=== PATIENT | female | born 1960 | race Caucasian/White ===

== ENCOUNTER → 2024-11-25 10:03 | Outpatient (REF) | payer BC, SELFPAY ==
--- NOTE | ~2024-11-25 | NM_ITS ---
EXAMINATION: Nuclear medicine three-phase bone scan both feet. Whole body bone scan was obtained subsequently. CLINICAL INDICATION: Right heel pain. Rule out stress fracture. COMPARISON: Outside x-rays 09/07/2024. FINDINGS: On first phase of bone scan there is symmetrical perfusion seen to both lower legs and feet. On the second phase of bone scan there is increased blood pool activity seen in bilateral tarsal metatarsal joint and left first metatarsophalangeal joint. On third phase of bone scan there is increased focal activity seen in right calcaneal heel, left first metatarsophalangeal joint, bilateral mid metatarsal phalangeal joints. The above findings are consistent with degenerative arthritic changes. Also on third phase of bone scan there is moderate increased activity seen in bilateral knee joints. No abnormal activity seen in the tibial shins, metatarsals to suspect any murray splints or stress fracture. On whole body bone scan no abnormal activity seen. NM/NM bone 3 phase IMPRESSION: Normal first phase bone scan both feet There is mild increased blood pool activity in bilateral tarsometatarsal joints and left first metatarsal joint followed by increased activity in the third phase as well consistent with DJD. No abnormal activity seen in the metatarsals to suspect stress fracture. No activity seen in the anterior tibial murray to suspect any shinsplints. Mild activity right cavity likely related to bursitis Electronically signed by: Baldemar Aggarwal MD 11/25/2024 04:23 PM [facility]
--- OUTSIDE RECORDS SUMMARY | 2024-11-25 10:56 | XMS_ITS | Clinical Summary ---
Author Organization Formerly [facility], 1928–1983 Address [facility] [place] [address] Care Team Providers Care Assistant Director Of Admissions Name Role Phone Gisel Estrada MD Primary Care Provider + Allergies No known active allergies Medications Medication Sig Dispensed Refills Start Date End Date Status CombiPatch 0.05-0.14 mg/24 hr Patch Semiweekly 03/15/2020 Active propranoloL (Inderal) 10 mg Tablet 02/25/2020 Active estradioL (ESTRACE) 0.01 % (0.1 mg/gram) Cream Use small dab to vaginal opening daily 42.5 g 12 05/06/2020 Active clobetasoL (TEMOVATE) 0.05 % Ointment Use 3X/week hs sparingly to vulva 15 g 1 02/03/2021 Active Active Problems No known active problems Social History Tobacco Use Types Packs/Day Years Used Date Smoking Tobacco: Former Smokeless Tobacco: Never Sex and Gender Information Value Date Recorded Sex Assigned at Not on file Gender Identity Not on file Sexual Orientation Not on file Plan of Treatment Health Maintenance Due Date Last Done Comments CT Colonography 1961 Colonoscopy 1961 Colorectal Cancer Screening 1961 FIT DNA 1961 FIT 1961 Sigmoidoscopy (10 year) with FIT yearly 1961 Sigmoidoscopy 1961 HIV screen 1979 Hepatitis C Screening 1979 Tetanus/Diphtheria/Pertussis Vaccines (1 - Tdap) 11/01 HPV test 1991 PAP Smear 1991 Breast Cancer Share Decision Needed 2001 Pneumoccocal Vaccine: 50+ (1 of 1 - PCV) 2011 Zoster vaccine (1 of 2) 2011 Advance Directive 2016 Breast Cancer screening 08/21/2021 08/21/2019 Covid-19 Vaccine ( - 2023- season) 2024 Influenza (Flu) vaccine (1 o f 1 - Influenza standard series) 06/21/2024 Care Teams Assistant Director Of Admissions Relationship Specialty Start Date End Date Gisel Estrada MD [address] [place] [address] PCP - General Family Medicine 11/12/19
--- OUTSIDE RECORDS SUMMARY | 2024-11-25 10:56 | XMS_ITS | Continuity of Care Document ---
Author Organization [facility] Address [address] [facility] 2nd Floor [address] [place] [address]- Care Team Providers Care Greeting Card Maker Name Role Phone Gisel Estrada MD Primary Care Physician [phone] Encounter [facility] [place] Date(s): 10/02/24 - 11/01/24 [facility] [place] [address] [place] [address]- Attending Physician: Anna Clifton Admitting Physician: AdmAnna valero Referring Physician: Admtr ArIsaias Encounter Type: Triage Allergies, Adverse Reactions, Alerts No Known Medication Allergies Substance Criticality Severity Reaction Reaction Severity Status Other Food Allergy 1 Active 1Walnut sensitivity Medications aspirin 81 mg oral delayed release tablet 81 mg, 1, tablet, By Mouth, Daily, # 30 tablet, Refills 0, Maintenance, 01/16/24 1:08:00 PM EDT, Partial fill upon patient request if the prescription is for a schedule II opioid drug. Start Date: 01/16/24 Status: Ordered Quantity: 30.0 Unit: tablet Repeat number: 1 clobetasol 0.05% topical ointment See Instructions, Topically 3 times a week, 0 Refills, Maintenance, 11/13/21 12:59:00 PM EST, Partial fill upon patient request if the prescription is for a schedule II opioid drug. Start Date: 11/13/21 Status: Ordered Repeat number: 1 Combipatch 0.05 mg-0.14 mg/24 hours transdermal film, extended release See Instructions, 1/2 patch Topically twice weekly, 0 Refills, Maintenance, 11/13/21 12:57:00 PM EST, Partial fill upon patient request if the prescription is for a schedule II opioid drug. Start Date: 11/13/21 Status: Ordered Repeat number: 1 CoQ10 By Mouth, Daily, 200 mg tab, 0 Refills, Maintenance, 01/16/24 1:06:00 PM EDT, Partial fill upon patient request if the prescription is for a schedule II opioid drug. Start Date: 01/16/24 Status: Ordered Repeat number: 1 estradiol 0.1 mg/g vaginal cream See Instructions, 1 Gm Topically 3 nights/wk at bedtime, # 42.5 Gm, 2 Refills, Maintenance, :20:00 AM EDT, Cream, Partial fill upon patient request if the prescription is for a schedule II opioid drug. Start Date: 01/15/22 Status: Ordered Quantity: 42.5 Unit: g Repeat number: 3 Fish Oil By Mouth, 0 Refills, Maintenance, 01/16/24 1:07:00 PM EDT, Partial fill upon patient request if the prescription is for a schedule II opioid drug. Start Date: 01/16/24 Status: Ordered Repeat number: 1 propranolol 10 mg oral tablet 10 mg, 1, tablet, By Mouth, Daily, PRN, # 180 tablet, Refills 0, Maintenance, 01/16/24 1:07:00 PM EDT, Partial fill upon patient request if the prescription is for a schedule II opioid drug. Start Date: 01/16/24 Status: Ordered Quantity: 180.0 Unit: tablet Repeat number: 1 rosuvastatin 20 mg oral tablet 1 tablet = 20 mg, By Mouth, Daily, # 90 tablet, 3 Refills, Maintenance, 10/02/24 2:41:00 PM EST, Tablet, [facility] #[id number], Partial fill upon patient request if the prescription is for a schedule IIopioid drug., 174, cm, 10/02/24 14:25:00 EST, Height Start Date: 10/02/24 Status: Ordered Quantity: 90.0 Unit: tablet Repeat number: 4 Problem List Condition Confirmation Course Effective Dates Status H ealth Status Informant Anxiety Confirmed Active Atrophic vaginitis Confirmed Active Coronary artery calcification seen on CT scan Confirmed Active Ovarian cyst Confirmed Active Hormone replacement therapy Confirmed Active DUB (dysfunctional uterine bleeding) Confirmed Active Murmur Confirmed Active Hyperlipidemia Confirmed Active Lichen sclerosus Confirmed Active Vaginal discharge Confirmed Active Varicella Confirmed Active Social History Social History Type Response Smoking Status Never smoker entered on: 03/26/14 Sex Sex Representation Female (finding) Laboratory * Event Display: Non Lab Results Authored Date: Patient Care team information Care Team Personnel Name: Gisel Estrada MD Position: [facility] Outreach Member Role: PCP Address: [address] [place] [address] Dr Estrada [address] Telecom: Care Team Related Persons Name: SYDNIE FONTAINE Insurance Providers Guarantor name: SNEHAL FONTAINE Health Plan Information #: 1 Payer: HMO BLUE IN NETWORK Member Number: NA Policy Number: NA Group Number: NA
--- OUTSIDE RECORDS SUMMARY | 2024-11-25 10:56 | XMS_ITS | Data Portability ---
Author Organization [facility], [facility] Address [address] [place] [address] Care Team Providers Care Entrance Guard Name Role Phone ADRIENNE ATKINS Assessment Encounter Date Assessment Date Assessment LastModified by Organization Details LastModified Time 04/25/2012 04/25/2012 reassure.? ? ? suggest investigating when her insurance will pay for shingles vaccine. [email or web address] Not available 04/25/2012 09:29:51 10/29/2012 10/29/2012 ok to keep soaking but probably needs excision of half of nail.? ? ? she will think about it.? ? ?horizontal/stra ight cutting as well as central V's discussed.? [email or web address] Not available 10/29/2012 15:59:50 Plan of Treatment Reminders Order Date Submit Date Provider Last Modified By Organization Details Last Modified Time Details Appointments None record ed. Lab None record ed. Referral None record ed. Procedures None record ed. Surgeries None record ed. Imaging None record ed. Medication Orders None record ed. Patient TargetsNo targets recorded. Patient InstructionsNo instructions recorded. Reason for Referral None Reported. 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 Procedures Surgical History Date Name Laterality Status Provider Name and Address Organization Details Recorded Time 01/16/20 17 Marciano - Colonoscopy completed Derrell Tariq MD [address] [place] [address], [id number], [facility] 01/15/2017 09:41:21 07/04/20 06 completed Not Available [facility] 1 06:05:52 Imaging Results None recorded. Procedure Notes None recorded. Medical Equipment None Reported. Allergies No known drug allergies Medications Name Sig Start Date Stop Date Status Note LastModified by Organization Details LastModified Time Diflucan 150 mg tablet Take 1 tablet by oral route for 1 day. 09/29 completed Not Available Not Available Not Available aspirin 81 mg tablet,del ayed release TAKE 1 TABLET BY MOUTH EVERY DAY FOR 90 DAYS active Not Available Not Available No t Available propranolo l 10 mg tablet TAKE 1 TABLET BY MOUTH TWICE A DAY FOR 30 DAYS active Not Available Not Available No t Available lorazepam 0.5 mg tablet active Not Available Not Available Not Available Flagyl 500 mg tablet Take 1 tablet twice a day by oral route for 10 days. 07/01 completed Not Available Not Available Not Available ferrous sulfate 325 mg (65 mg iron) tablet Take 1 tablet twice a day by oral route. active Not Available Not Available No t Available Cipro 500 mg tablet Take 1 tablet every 12 hours by oral route for 10 days. 07/01 completed Not Available Not Available Not Available mupirocin 2 % topical ointment apply to rash on knee bid active Not Available Not Available No t Available clobetasol 0.05 % topical ointment apply daily or bid to affected area active Not Available Not Available No t Available estradiol 0.01% (0.1 mg/gram) vaginal cream APPLY DIRECTED INTRAVAGI DAVID 3 TIMES A WEEK FOR 90 DAYS active Not Available Not Available No t Available Laxative (bisacodyl ) 5 mg tablet,del ayed release TAKE 4 TABLETS BY MOUTH DIRECTED 1 DAY active Not Available Not Available No t Available rosuvastat in 20 mg tablet TAKE 1 TABLET BY MOUTH EVERY DAY FOR 30 DAYS active Not Available Not Available No t Available iron active daily Not Available Not Availa ble Not Available GaviLyte-G 236 gram-22.74 gram-6.74 gram-5.86 gram oral solution USE DIRECTED FOR 1 DAY active Not Available Not Available No t Available Vitals Date Recorded Body height Body weight Body mass index (BMI) Heart rate Systolic blood pressure Diastolic blood pressure Provider Name and Address Organization Details Last Updated DateTime 2 172.72 cm 23804.3 16789 g 24.9 kg/m2 62 /min 100 mm[Hg] 70 mm[Hg] Indu Mantilla [facility] 2 09:41:43 Date Recorded Body weight Body height Body mass index (BMI) Heart rate Systolic blood pressure Diastolic blood pressure Provider Name and Address Organization Details Last Updated DateTime 2 33457.5 98370 g 172.72 cm 25 kg/m2 58 /min 110 mm[Hg] 66 mm[Hg] Lupe Calixto LPN [facility] 2 09:03:56 Date Recorded Body height Body weight Body mass index (BMI) Heart rate Systolic blood pressure Diastolic blood pressure Provider Name and Address Organization Details Last Updated DateTime 3 172.72 cm 64280.0 80537 g 24.5 kg/m2 66 /min 114 mm[Hg] 72 mm[Hg] Lupe Calixto RISK ANALYST [facility] 3 15:16:08 Social History Question Answer Notes LastModified by Organizat ion Details LastModified Time Tobacco Smoking Status Never Smoker Not Available [facility] 09/06/2011 04:56:02 What Is Your Occupation? [employer] [email or web address] Information not available 09/28/2011 Are There Any Guns Present In Your Home? No [email or web address] Information not available 09/28/2011 Live Alone Or With Others? With Others [email or web address] Information not available 09/28/2011 Patient Has Health Care Proxy Signed And In Chart No Pt Will Drop Off Copy .Will [email or web address] Information not available 10/03/2018 Marital Status Will [email or web address] Information not available 09/28/2011 How Many Children Do You Have? 2 2 Boys: College And 17 [email or web address] Information not available 09/28/2011 Seat Belts Used Routinely Yes Helmet [email or web address] Information not available 09/28/2011 Are You Sexually Active? No Uncomfortable [email or web address] Information not available 09/28/2011 Smoke Alarm In Home Yes [email or web address] Information not available 09/28/2011 Do You Use Sunscreen Routinely? No Careful And Sunglasses [email or web address] Information not available 09/28/2011 Sex: Unknown Functional Status None recorded. Mental Status None recorded. Family History Nothing Reported. Medical History No medical history recorded. Gynecological HistoryNo gynecological history recorded. Obstetrics History GPAL:G 0 P 0 0 0 0 Immunizations Vaccine Type Date Status Note Provider Nam e and Address Organization Details Recorded Time Influenza, live, trivalent, intranasal 1 completed Not Available [facility] 11/07/2019 02:18:08 influenza, seasonal, intradermal, preservative free 3 completed Not Available [facility] 11/07/2019 02:25:38 Hep B, unspecified formulation 1 completed Lenka Escobar RN null, [facility] 11/29/2011 12:45:19 Hep A-Hep B 0 completed CLAU Chavis, [facility] 11/29/2011 12:47:35 Td(adult) unspecified formulation 3 completed CLAU Chavis, [facility] 11/29/2011 12:48:36 Tdap 0 completed CLAU Chavis, [facility] 11/29/2011 12:49:18 Past Encounters Encounter ID Performer Location Encounter Start Date Encounter Closed Date Diagnosis/Indication Diagnosis SNOMED-CT Code Diagnosis ICD10 Code Diagnosis Note [id number] [facility], [address] [place] [id number] 07/04/2006 07:43:24 07/05/2006 07:31:51 [id number] [facility] - [address] [place] [id number] 07/04/2006 10:12:11 07/04/2006 10:12:24 [id number] [facility], OFFICE [address] [place] [address] DR NATHAN [place] [id number] 04/16/2011 09:55:31 04/16/2011 12:09:12 [id number] , [facility], [address] NATHAN [place] [id number] 09/28/2011 11:31:28 09/28/2011 13:26:45 [id number] , [address] NATHAN [place] [id number] 12/07/2011 13:43:58 12/07/2011 14:25:20 [id number] , [facility], [address] NATHAN [place] [id number] 01/02/2012 09:07:40 01/02/2012 09:50:31 [id number] , [address] NATHAN [place] [id number] 03/28/2012 09:28:19 03/28/2012 10:09:24 [id number] , [address] NATHAN [place] [id number] 04/25/2012 08:40:41 04/25/2012 09:30:17 [id number] Alycia Pacheco LPN , [address] NATHAN [place] [id number] 10/24/2012 08:14:12 10/24/2012 09:05:53 [id number] Lana Vizcaino MD , [address] [place] [id number] 10/29/2012 14:33:07 10/29/2012 15:54:32 [id number] Derrell Tariq MD [facility], [address] [place], [place] [id number] 01/15/2017 07:32:56 01/15/2017 14:21:07 [id number] Grace Anderson RN Endoscopy , [address] [place] [id number] 03/23/2024 07:29:35 03/23/2024 13:41:55 Health Concerns Section Related Observation LastModified by Organization Detai ls LastModified Time None Recorded Concern Status LastModified by Organization Details LastModified Time None Recorded Advance Directives Directive None Recorded Payers Encounter Date Sequence Insurance Name Policy Number Policy Dominguez Covered Member ID Dominguez Member ID Guarantor Name 03/28/2012 1 [facility]: HMO BLUE [id number] Filemon Martinez [id number] Alan Martinez 04/25/2012 1 [place] [id number] Filemon Martinez [id number] Alan Martinez 10/24/2012 1 [place] [id number] Filemon Martinez [id number] Alan Martinez 10/29/2012 1 [place] [id number] Filemon Martinez [id number] Alan Martinez 01/15/2017 1 [place] [id number] Filemon Martinez [id number] Alan Martinez Notes Date Note Type Note Provider Name and Address Organization Details Recorded Time 10/24/2012 text/html HPI Presents for Flu vaccine today. Screening negative.? Alycia Pacheco LPN [facility], [facility] 10/24/2012 09:05:40 10/29/2012 text/html ingrown right great toe nail lateral aspect. has been paring it for a long time to avoid problems but around the corner not straight across. Lana Vizcaino MD [address] [place] [address], [phone], [facility] 10/29/2012 15:59:56 OBGyn Episode No OBEpisode recorded.
--- OUTSIDE RECORDS SUMMARY | 2024-11-25 10:56 | XMS_ITS | Data Portability ---
Author Organization [facility], Endoscopy, [facility] Address [address] [place] [address] Assessment No assessment recorded. Plan of Treatment Reminders Order Date Submit Date Provider Last Modified By Organization Details Last Modified Time Details Appointments None record ed. Lab None record ed. Referral None record ed. Procedures None record ed. Surgeries None record ed. Imaging None record ed. Medication Orders None record ed. Patient TargetsNo targets recorded. Patient InstructionsNo instructions recorded. Reason for Referral None Reported. Results Created Date Observation Date Name Description Value Unit Range Abnormal Flag Note LastModifiedBy Organization Detail LastModifiedTime 03/23/20 24 03/23/2024 elect sudhakar diogr am No observ ation record ed. [email or web address] Not Available 2023 10:48:43 Result Notes None recorded. Procedures Surgical History Date Name Laterality Status Provider Name and Address Organization Details Recorded Time 4 Genaro - Colonoscopy completed Steven Lam MD [address] [place] [address], [phone], [facility] 03/23/2024 09:12:43 Imaging Results Imaging Date Name Status LastModified by Organization Details LastModified Time 03/23/2024 electrocardiogram completed [email or web address] Informa tion not available 03/26/2024 10:48:43 Procedure Notes None recorded. Medical Equipment None Reported. Allergies No known drug allergies Medications Name Sig Start Date Stop Date Status Note LastModified by Organization Details LastModified Time aspirin active Not Available Not Avail able Not Available CoQ10 active Not Available Not Availa ble Not Available rosuvastatin active Not Available Not Available Not Available Vitals None Recorded Social History None recorded. Functional Status None recorded. Mental Status None recorded. Family History Nothing Reported. Medical History No medical history recorded. Gynecological HistoryNo gynecological history recorded. Obstetrics History GPAL:G 0 P 0 0 0 0 Past Encounters Encounter ID Performer Location Encounter Start Date Encounter Closed Date Diagnosis/Indication Diagnosis SNOMED-CT Code Diagnosis ICD10 Code Diagnosis Note [id number] [address] [place] [id number] 07/04/2006 07:43:24 07/05/2006 07:31:51 [id number] [facility] - [address] [place] [id number] 07/04/2006 10:12:11 07/04/2006 10:12:[id number] [place] [id number] 04/16/2011 09:55:31 04/16/2011 12:09:[id number] [place] [id number] 09/28/2011 11:31:28 09/28/2011 13:26:[id number] [place] [id number] 12/07/2011 13:43:58 12/07/2011 14:25:[id number] [place] [id number] 01/02/2012 09:07:40 01/02/2012 09:50:[id number] [place] [id number] 03/28/2012 09:28:19 03/28/2012 10:09:[id number] [place] [id number] 04/25/2012 08:40:41 04/25/2012 09:30:17 [id number] Alycia Pacheco LPN [address] [place] [id number] 10/24/2012 08:14:12 10/24/2012 09:05:53 [id number] Lana Vizcaino MD [address] [place] [id number] 10/29/2012 14:33:07 10/29/2012 15:54:32 [id number] Derrell Tariq MD [address] [place] [id number] 01/15/2017 07:32:56 01/15/2017 14:21:07 [id number] Grace Anderson RN Endoscopy , [address] [id number] 03/23/2024 07:29:35 03/23/2024 13:41:55 Health Concerns Section Related Observation LastModified by Organization Detai ls LastModified Time None Recorded Concern Status LastModified by Organization Details LastModified Time None Recorded Advance Directives Directive None Recorded Payers Encounter Date Sequence Insurance Name Policy Number Policy Dominguez Covered Member ID Dominguez Member ID Guarantor Name 03/23/2024 1 [facility] [id number] Filemon Martinez [id number] Alan Martinez OBGyn Episode No OBEpisode recorded.
== END ==
LOC: HO.NUCMED 10:03
PROVIDERS: PCP Family Medicine; Visit Provider Podiatrist
DX: M84.371A Stress fracture, right ankle, initial encounter for fracture (principal)
CPT/HCPCS: 78315; A9503

== ENCOUNTER → 2024-11-25 10:09 | Outpatient (BNV) | payer BC, SELFPAY | PROVIDERS: PCP Family Medicine; Visit Provider Radiology Diagnostic Radiology | DX: M19.071 Primary osteoarthritis, right ankle and foot (principal); M19.072 Primary osteoarthritis, left ankle and foot | CPT/HCPCS: 78315 ==